=== PATIENT | female | born 1995 | race Caucasian/White ===

== ENCOUNTER 2024-05-22 11:12 | Day surgery (SDC) | payer BC ==
[2024-05-20 16:54] VITALS: BMI 33.6
[2024-05-20 17:26] LABS: Hematocrit 37.9 % (34.9-44.5); Hemoglobin 13.4 g/dL (12.0-15.5); Mean Corpuscular HGB CONC 35.4 g/dL (32.0-36.0); Mean Corpuscular Hemoglobin 29.6 pg (27.0-33.0); Mean Corpuscular Volume 83.8 fL (81.6-98.3); Mean Platelet Volume 11.5 fL (7.4-10.4); Platelet Count 323 10x3/uL (150-450); RBC Distribution Width 12.9 % (11.5-14.5); Red Blood Cell (RBC) Count 4.52 10x6/uL (3.90-5.03); White Blood Cell (WBC) Count 8.8 10x3/uL (3.5-10.5)
[2024-05-20 17:31] LABS: BHCG - Serum Negative (NEGATIVE); Pregs Control Background? CLEAR/WHITE (CLR/WHITE); Pregs Control Bar Appear? YES (CONTROL BAR)
[2024-05-22] MEDS ORDERED: CeleCOXIB 100 MG CAP ONE (11:27)
[2024-05-22] MEDS ORDERED: Famotidine/PF 20 mg/2ml Vial ONE (11:27)
[2024-05-22] MEDS ORDERED: Gabapentin 300 MG CAP ONE (11:28)
[2024-05-22] MEDS ORDERED: EPINEPHrine 1 MG/ML VIAL ONE (13:10)
[2024-05-22] MEDS ORDERED: Bupivacaine PF 0.5% 30 ML VIAL ONE (13:10)
[2024-05-22] MEDS ORDERED: PROPOFOL 20 ML ONE (13:27)
[2024-05-22] MEDS ORDERED: fentaNYL 50 mcg/mL 1 mL Vial ONE ×2 (13:27→14:25)
[2024-05-22] MEDS ORDERED: Rocuronium Bromide 10 MG/ML (10ML VIAL) ONE (13:29)
[2024-05-22] MEDS ORDERED: Dexamethasone 4 mg/ml Vial ONE (13:29)
[2024-05-22] MEDS ORDERED: Ketorolac Tromethamine 30 MG (1 mL) VIAL ONE (13:29)
[2024-05-22] MEDS ORDERED: Lidocaine 1% PF 5 ML VIAL ONE (13:29)
[2024-05-22] MEDS ORDERED: Ondansetron PF 4 MG/2 ML Vial ONE (13:29)
[2024-05-22] MEDS ORDERED: CEFAZOLIN 2 GM VIAL ONE (13:34)
[2024-05-22] MEDS ORDERED: Midazolam HCl 2 mg/2 ml Vial ONE (13:40)
[2024-05-22] MEDS ORDERED: Scopolamine 1 mg/72 hour Patch ONE (13:42)
[2024-05-22] MEDS ORDERED: Glycopyrrolate 0.2 MG/ML 5 ML SYRINGE ONE (14:56)
== END 2024-05-22 19:05 | disposition home or self-care (01) ==
LOC: CSHSDC 11:12
PROVIDERS: ATTEND Student in an Organized Health Care Education/Training Program
PROC: 0UDB8ZZ Extraction of Endometrium, Via Natural or Artificial Opening Endoscopic (ICD-10-PCS; principal; 2024-05-22)
DX: N80.00 Endometriosis of the uterus, unspecified (principal); N85.8 Other specified noninflammatory disorders of uterus; J45.909 Unspecified asthma, uncomplicated; E66.9 Obesity, unspecified; Z79.51 Long term (current) use of inhaled steroids; Z79.899 Other long term (current) drug therapy; Z68.34 Body mass index [BMI] 34.0-34.9, adult
CPT/HCPCS: 84703; 85027; 86850; 86900; 86901; 88305; J0171; J0665; J1100; J1885; J2250; J2405; J2704; J3010; Q9968; S0028

== ENCOUNTER 2025-08-04 14:47 | Outpatient (CLI) | payer BC | END 2025-08-04 14:48 | disposition home or self-care (01) | LOC: CSHMAMMO 14:47 | PROVIDERS: ATTEND Physician Assistant | DX: N63.15 Unspecified lump in the right breast, overlapping quadrants (principal) | CPT/HCPCS: 77066; G0279 ==